=== PATIENT | female | born 1950 | race Caucasian/White ===

== ENCOUNTER → 2017-04-26 | Outpatient (CLI) | payer OTHER ==
[~2017-04-26] MED LIST: Fioricet PO; TEMA15CA PO
== END | disposition home or self-care (01) ==
LOC: STAR 15:10
PROVIDERS: ATTEND Orthopaedic Surgery
DX: Z01.818 Encounter for other preprocedural examination (principal); R94.31 Abnormal electrocardiogram [ECG] [EKG]; M75.21 Bicipital tendinitis, right shoulder; M75.111 Incomplete rotator cuff tear or rupture of right shoulder, not specified as traumatic; M75.51 Bursitis of right shoulder
CPT/HCPCS: 93005

== ENCOUNTER 2017-05-03 13:04 | Day surgery (SDC) | payer OTHER ==
[~2017-05-03] VITALS: Ht 167.6 cm; Wt 61.5 kg
[2017-05-03] MEDS ORDERED: LACTATED RINGERS 1,000 ML IV SCH (13:34)
[2017-05-03 13:58] VITALS: BP 116/78
[2017-05-03] MEDS ORDERED: APREPITANT 40 MG CAPSULE PO STA (16:21)
[2017-05-03] MEDS ORDERED: APREPITANT 40 MG CAPSULE ONE (16:21)
[2017-05-03] MEDS ORDERED: FENTANYL PF 100 MCG/2ML ONE (16:31)
[2017-05-03] MEDS ORDERED: EPHEDRINE 50 MG/ML, 1ML ONE (16:31)
[2017-05-03] MEDS ORDERED: PROPOFOL 10 MG/ML, 20ML ONE (16:31)
[2017-05-03] MEDS ORDERED: MIDAZOLAM 1 MG/ML, 2ML ONE (16:31)
[2017-05-03] MEDS ORDERED: ROCURONIUM 10 MG/ML,10ML ONE (16:31)
[2017-05-03] MEDS ORDERED: PHENYLEPHRINE 10 MG/ML ONE (16:31)
[2017-05-03] MEDS ORDERED: CEFAZOLIN 1,000 MG ONE (16:31)
[2017-05-03] MEDS ORDERED: DEXAMETHASONE 4 MG/ML, 1ML ONE (16:31)
[2017-05-03] MEDS ORDERED: SUCCINYLCHOLINE 20 MG/ML, 10ML ONE (16:31)
[2017-05-03] MEDS ORDERED: ONDANSETRON 2MG/ML, 2ML ONE (16:31)
[2017-05-03] MEDS ORDERED: EPINEPHRINE 1 MG/ML, 1ML INFIL ONE (16:46)
[2017-05-03] MEDS ORDERED: LIDOCAINE 1%, 20ML INFIL ONE (16:46)
[2017-05-03] MEDS ORDERED: BUPIVACAINE/PF 0.25% INFIL ONE (17:09)
[2017-05-03] MEDS ORDERED: FENTANYL PF 100 MCG/2ML IV PRN ×2 (18:30)
[2017-05-03] MEDS ORDERED: OXYcodone 5 MG/5 ML ORAL.SOL UDC PO PRN ×2 (18:30)
[2017-05-03] MEDS ORDERED: PROMETHAZINE 25 MG/ML, 1ML IV PRN (18:30)
[2017-05-03] MEDS ORDERED: ONDANSETRON 2MG/ML, 2ML IVPush PRN (18:30)
[2017-05-03] MEDS ORDERED: HYDROmorphone 1 MG/ML, 1ML IV PRN ×2 (18:30)
[2017-05-03] MEDS ORDERED: ACETAMINOPHEN 325 MG TABLET PO PRN ×3 (18:30→19:30)
[2017-05-03 19:10] VITALS: BP 117/77
[2017-05-03] MEDS ORDERED: PROMETHAZINE 25 MG/ML, 1ML IM PRN (19:30)
[2017-05-03] MEDS ORDERED: OXYcodone/APAP 5/325MG TABLET PO PRN ×2 (19:30→22:30)
[2017-05-03] MEDS ORDERED: KETOROLAC 30 MG/1 ML IV SCH (19:30)
[2017-05-03] MEDS ORDERED: morphine SULFATE 10 MG/ML, 1ML IV PRN (19:30)
[2017-05-03] MEDS ORDERED: ONDANSETRON 2MG/ML, 2ML IV PRN (19:30)
== END 2017-05-03 23:00 | disposition home or self-care (01) ==
LOC: OUT 13:04 → 4NOR 19:04 → OUT 23:00
PROVIDERS: ATTEND Orthopaedic Surgery
DX: S43.431A Superior glenoid labrum lesion of right shoulder, initial encounter (principal); M75.111 Incomplete rotator cuff tear or rupture of right shoulder, not specified as traumatic; M19.011 Primary osteoarthritis, right shoulder; M65.811 Other synovitis and tenosynovitis, right shoulder; M75.21 Bicipital tendinitis, right shoulder; M75.51 Bursitis of right shoulder; M75.41 Impingement syndrome of right shoulder; Z86.73 Personal history of transient ischemic attack (TIA), and cerebral infarction without residual deficits; G43.909 Migraine, unspecified, not intractable, without status migrainosus; X58.XXXA Exposure to other specified factors, initial encounter; Y93.89 Activity, other specified; Y92.89 Other specified places as the place of occurrence of the external cause; Y99.8 Other external cause status; Z79.82 Long term (current) use of aspirin
CPT/HCPCS: 23430; 29822; 29826; 29827; C1713; J0171; J0330; J0690; J1100; J1170; J1885; J2250; J2370; J2405; J2704; J3010; J3490; J7120; J8501